=== PATIENT | female | born 1970 | race Caucasian/White ===

== ENCOUNTER 2017-05-23 07:21 | Emergency (ER) | payer MEDICAID, OTHER ==
[~2017-05-23] VITALS: Ht 152.4 cm; Wt 82.0 kg
[~2017-05-23 07:21] MED LIST: DIPH1TAB36 PO; DOXY100T PO; INSU100V2 SQ; LISI-357 PO
[2017-05-23 07:22] VITALS: BP 200/94; PULSE 104; RESP 16; TEMP 98.6; O2SAT 100
[2017-05-23] MEDS ORDERED: INSU100V2 SQ (07:53)
--- NOTE | 2017-05-23 08:13 | PD ---
HPI Chief Complaint: Edema Time Seen by Provider: 08:00 Travel History International Travel<30 days: No Contact w/Intl Traveler<30days: No Traveled to known affect area: No History of Present Illness HPI 47 years old female complains of pain and swelling right low leg and right foot. Patient states that the symptoms started 3 weeks ago and got worse since then. Patient was seen at the emergency room in [place] for this condition. Patient states that the workup was done. Patient denies any headache. Patient denies any chest pain or shortness of breath. Patient denies abdominal pain. Patient denies any injury to the right leg, right foot. Patient had recent airplane trip however after the symptoms started. Patient has history hypertension, diabetes, hyperlipidemia. Patient states that she quit smoking 9 years ago. Patient recently was diagnosed with COPD. Patient has not taken her blood pressure medication recently. Patient denies any history of DVT or PE. PFSH Past Medical History Diabetes: Yes Patient Takes Glucophage: No Diminished Hearing: No Genitourinary: Yes (UTI ) Hypertension: Yes Immunizations Current: No Tetanus Vaccination: Unknown Influenza Vaccination: No ?: Not Menopausal: No Tubal Ligation: Yes Past Surgical History Gynecologic Surgery: Yes (HYSTERECTOMY , TUBAL LIGATION ) Hysterectomy: Yes Social History Alcohol Use: Yes (rarely) Tobacco Use: No (quit ) Substance Use: No Allergies-Medications (Allergen,Severity, Reaction): Coded Allergies: penicillin G (Unverified Allergy, Mild, 05/23/17) Reported Meds & Prescriptions Reported Meds & Active Scripts Active Reported Humulin R Inj (Insulin Human Regular) 1,000 Unit/10 Ml Vial 10-20 Units SQ ACHS Max dose at bedtime:( )units; sugars < 70,(0)units; sugars 150-199,(5)units; sugars 200-249,(10)units; sugars 250-299,(15)units; sugars 300-349,(20)units; sugars more than 349,(25)units. Review of Systems General / Constitutional: No: Fever Eyes: No: Visual changes HENT: No: Headaches Cardiovascular: No: Chest Pain or Discomfort Respiratory: No: Shortness of Breath Gastrointestinal: No: Abdominal Pain Genitourinary: No: Dysuria Musculoskeletal: Positive: Edema, Pain Skin: No Rash Neurologic: No: Weakness Psychiatric: No: Depression Endocrine: No: Polydipsia Hematologic/Lymphatic: No: Easy Bruising Physical Exam Narrative GENERAL: Well-nourished, well-developed patient. SKIN: Focused skin assessment warm/dry. HEAD: Normocephalic. EYES: No scleral icterus. No injection or drainage. NECK: Supple, trachea midline. No JVD or lymphadenopathy. CARDIOVASCULAR: Regular rate and rhythm without murmurs, gallops, or rubs. RESPIRATORY: Breath sounds equal bilaterally. No accessory muscle use. GASTROINTESTINAL: Abdomen soft, non-tender, nondistended. MUSCULOSKELETAL: Patient has swelling of the right low leg with mild tenderness on palpation diffuse over the right lower leg. Patient has mild ecchymosis on the right foot dorsally with +2 pitting edema. No redness no heat. BACK: Nontender without obvious deformity. No CVA tenderness. Neurologic exam normal. Data Data Last Documented VS Vital Signs Date Time Temp Pulse Resp B/P Pulse Ox O2 Delivery O2 Flow Rate FiO2 05/23/17 09:30 Room Air 05/23/17 08:22 91 16 205/93 99 05/23/17 07:22 98.6 Orders Complete Blood Count With Diff (05/23/17 08:06) Comprehensive Metabolic Panel (05/23/17 08:06) Prothrombin Time / Inr (Pt) (05/23/17 08:06) Act Partial Throm Time (Ptt) (05/23/17 08:06) Iv Access Insert/Monitor (05/23/17 08:06) Ecg Monitoring (05/23/17 08:06) Oximetry (05/23/17 08:06) Foot, Complete ([id number]) (05/23/17 08:06) Us Leg Venous Doppler (05/23/17 08:06) Acetaminophen (Tylenol) (05/23/17 10:00) Ct Foot W/O Contrast (05/23/17 ) Splint Or Brace Apply/Monitor (05/23/17 13:20) Crutches (05/23/17 13:20) Labs Laboratory Tests Test 05/23/17 05/23/17 08:15 11:07 White Blood Count 9.8 TH/MM3 Red Blood Count 3.13 MIL/MM3 Hemoglobin 9.6 GM/DL Hematocrit 26.8 % Mean Corpuscular Volume 85.5 FL Mean Corpuscular Hemoglobin 30.8 PG Mean Corpuscular Hemoglobin 36.0 % Concent Red Cell Distribution Width 12.9 % Platelet Count 365 TH/MM3 Mean Platelet Volume 8.8 FL Neutrophils (%) (Auto) 67.4 % Lymphocytes (%) (Auto) 20.0 % Monocytes (%) (Auto) 8.7 % Eosinophils (%) (Auto) 3.2 % Basophils (%) (Auto) 0.7 % Neutrophils # (Auto) 6.6 TH/MM3 Lymphocytes # (Auto) 2.0 TH/MM3 Monocytes # (Auto) 0.9 TH/MM3 Eosinophils # (Auto) 0.3 TH/MM3 Basophils # (Auto) 0.1 TH/MM3 CBC Comment AUTO DIFF Differential Comment AUTO DIFF CONFIRMED Sodium Level 136 MEQ/L Potassium Level 4.3 MEQ/L Chloride Level 106 MEQ/L Carbon Dioxide Level 24.6 MEQ/L Anion Gap 5 MEQ/L Blood Urea Nitrogen 36 MG/DL Creatinine 1.37 MG/DL Estimat Glomerular Filtration 42 ML/MIN Rate Random Glucose 172 MG/DL Calcium Level 8.5 MG/DL Total Bilirubin 0.2 MG/DL Aspartate Amino Transf 11 U/L (AST/SGOT) Alanine Aminotransferase 15 U/L (ALT/SGPT) Alkaline Phosphatase 125 U/L Total Protein 6.9 GM/DL Albumin 2.7 GM/DL Prothrombin Time 9.6 SEC Prothromb Time International 0.9 RATIO Ratio Activated Partial 24.5 SEC Thromboplast Time MDM Medical Decision Making Medical Screen Exam Complete: Yes Emergency Medical Condition: Yes Interpretation(s) Last Impressions Lower Extremity Ultrasound 05/23/17805 Signed Impressions: Service Date/Time: May 08:27 - CONCLUSION: Unremarkable exam with no evidence of deep venous thrombosis. Terry Schultz MD 10:51 AM. CBC WBC 9.8. Hemoglobin 9.6 hematocrit 26.8. BUN 36. Creatinine 1.37. Glucose 172. 12:52 PM. Last Impressions Lower Extremity Ultrasound 05/23/17805 Signed Impressions: Service Date/Time: May 08:27 - CONCLUSION: Unremarkable exam with no evidence of deep venous thrombosis. Terry Schultz MD Foot X-Ray 05/23/17805 Signed Impressions: Service Date/Time: May 09:25 - CONCLUSION: 1. Abnormal examination suggesting possible early Charcot foot versus remote Lisfranc injury. Emery Dodson MD CT scan of the right foot show acute fracture involving the proximal portion of the right second third and fourth metatarsals with dorsal displacement of these bone inhalation to the tarsal bones. Acute fractured bone the middle cuneiform. Differential Diagnosis Differential diagnosis including DVT, dependent edema, cellulitis, fracture, dislocation. Narrative Course 47 years old female with pain and swelling right low leg and right foot. Posterior short-leg splint and crutches given. 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 Will follow-up with the patient. Diagnosis Primary Impression: Fracture of 2nd metatarsal Qualified Code: S92.321A - Closed displaced fracture of second metatarsal bone of right foot, initial encounter Additional Impressions: Fracture of third metatarsal bone of right foot Qualified Code: S92.331A - Closed displaced fracture of third metatarsal bone of right foot, initial encounter Fracture of fourth metatarsal bone of right foot Qualified Code: S92.341A - Closed displaced fracture of fourth metatarsal bone of right foot, initial encounter Fracture of tarsal bone of right foot Qualified Code: S92.244A - Closed nondisplaced fracture of medial cuneiform of right foot, initial encounter Patient Instructions: General Instructions Additional Instructions: Take medication as needed for pain. Follow-up with middle school football coach. Med/Other Pt SpecificInfo: Prescription(s) given Scripts Tramadol (Ultram)50 Mg Tab50 Mg PO Q6H PRN (PAIN) #30 TAB Prov:Nick Sparrow MD 05/23/17 Disposition: 01 DISCHARGE HOME Condition: Stable Nick Sparrow MD May 23, 2017 08:13
[2017-05-23 08:22] VITALS: BP 205/93; PULSE 91; RESP 16; O2SAT 99
[2017-05-23 08:31] LABS: AUTOMATED NEUTROPHIL # 6.6 TH/MM3 (1.8-7.7); BASOPHIL # 0.1 TH/MM3 (0-0.2); BASOPHIL % 0.7 % (0.0-2.0); EOSINOPHIL # 0.3 TH/MM3 (0-0.4); EOSINOPHIL % 3.2 % (0.0-4.0); HEMATOCRIT 26.8 % (35.0-46.0); MEAN CELL VOLUME 85.5 FL (80.0-100.0); MEAN CORPUSCULAR HEMOGLOBIN 30.8 PG (27.0-34.0); MONO % 8.7 % (0.0-8.0); NEUT % 67.4 % (16.0-70.0); PLATELET COUNT 365 TH/MM3 (150-450); RED BLOOD COUNT 3.13 MIL/MM3 (4.00-5.30); RED CELL DISTRIBUTION WIDTH 12.9 % (11.6-17.2); WHITE BLOOD COUNT 9.8 TH/MM3 (4.0-11.0)
[2017-05-23 08:35] LABS: HEMO FLAGS AUTO DIFF
[2017-05-23 08:46] LABS: ANION GAP 5 MEQ/L (5-15); AST (GOT) 11 U/L (15-37); BICARBONATE 24.6 MEQ/L (21.0-32.0); BLOOD UREA NITROGEN 36 MG/DL (7-18); CHLORIDE 106 MEQ/L (98-107); GLOMERULAR FILTRATION RATE 42 ML/MIN (>89); POTASSIUM 4.3 MEQ/L (3.5-5.1); SODIUM (NA) 136 MEQ/L (136-145)
[2017-05-23 08:47] LABS: ALT (GPT) 15 U/L (10-53)
[2017-05-23 08:49] LABS: ALKALINE PHOSPHATASE 125 U/L (45-117); TOTAL BILIRUBIN ADULT 0.2 MG/DL (0.2-1.0)
--- NOTE | 2017-05-23 09:09 | RADRPT ---
EXAM DATE/TIME: 05/23/2017 08:27 [facility] COMPARISON: No previous studies available for comparison. INDICATIONS : Right leg pain. MEDICAL HISTORY : Hypertension. UTI. Peripheral neuropathy. Diabetes. Depression. Anxiety. SURGICAL HISTORY : Hysterectomy. Tubal ligation. ENCOUNTER: Initial ACUITY: 3 days PAIN SCORE: 6/10 LOCATION: Right leg. TECHNIQUE: Venous ultrasound of the leg was performed from the inguinal ligament to the proximal calf. Real-mary alice e, color Doppler and spectral tracing, compression and augmentation techniques were used. FINDINGS: There is normal compressibility of the deep venous system from the inguinal region to the proximal ca lf. No echogenic clot is seen in the lumen of the common femoral, femoral, popliteal, and posterior tibial veins. There is a normal response of the venous system to proximal and distal augmentation an d respiration. CONCLUSION: Unremarkable exam with no evidence of deep venous thrombosis. Terry Schultz MD on May 23, 2017 at 9:07 Board Certified Radiologist. This report was verified electronically.
[2017-05-23 09:30] LABS: SCAN/DIFF AUTO DIFF CONFIRMED
[2017-05-23] MEDS ORDERED: ACETAMINOPHEN 325 MG TAB PO ONE (10:00)
--- NOTE | 2017-05-23 11:21 | RADRPT ---
EXAM DATE/TIME: 05/23/2017 09:25 [facility] COMPARISON: No previous studies available for comparison. INDICATIONS : Right foot pain and swelling. No recent injury. MEDICAL HISTORY : Hypertension. UTI. Peripheral neuropathy. Diabetes. Depression. Anxiety. SURGICAL HISTORY : Hysterectomy. Tubal ligation. ENCOUNTER: Subsequent ACUITY: 2 weeks PAIN SCORE: 5/10 LOCATION: Right foot FINDINGS: The examination demonstrates abnormal alignment involving the second and third metatarsals across the Lisfranc joint. There is posterior subluxation of the third metatarsal head. There are some small enrique ne fragments evident arising from the third metatarsal head. Exam would raise concern for early Charc ot foot or possible remote Lisfranc fracture. CONCLUSION: 1. Abnormal examination suggesting possible early Charcot foot versus remote Lisfranc injury. Emery Dodson MD on May 23, 2017 at 9:54 Board Certified Radiologist. This report was verified electronically.
[2017-05-23 11:30] LABS: APTT (PATIENT) 24.5 SEC (24.3-30.1); INTERNATIONAL NORMALIZED RATIO 0.9 RATIO; PROTHROMBIN TIME - PATIENT 9.6 SEC (9.8-11.6)
--- NOTE | 2017-05-23 12:38 | RADRPT ---
EXAM DATE/TIME: 05/23/2017 11:57 [facility] COMPARISON: No previous studies available for comparison. INDICATIONS : Right foot pain for the past 3 weeks. RADIATION DOSE: 14.57 CTDIvol (mGy) MEDICAL HISTORY : Diabetes mellitus type 2. SURGICAL HISTORY : None. ENCOUNTER: Initial ACUITY: 3 weeks PAIN SCALE: 4/10 LOCATION: Right foot TECHNIQUE: Volumetric scanning of the foot was performed. Using automated exposure control and adjustment of th e mA and/or kV according to patient size, radiation dose was kept as low as reasonably achievable to obtain optimal diagnostic quality images. DICOM format image data is available electronically for re view and comparison. FINDINGS: There are acute fractures involving the proximal portions of the right 2nd, 3rd and 4th metatarsals w ith dorsal displacement of these bones in relation to the tarsal bones. There is also an acute fract ure involving the middle cuneiform. Diffuse soft tissue swelling is noted surrounding the mid foot. CONCLUSION: 1. Acute fractures involving the proximal portions of the right 2nd, 3rd and 4th metatarsals with kylee dariela displacement of these bones in relation to the tarsal bones. 2. Acute fracture involving the middle cuneiform. 3. Diffuse soft tissue swelling involving the right mid foot. Javon Gonzalez MD on May 23, 2017 at 12:11 Board Certified Radiologist. This report was verified electronically.
[2017-05-23] MEDS ORDERED: ULTR50TA5 PO (13:26)
[2017-05-23 14:35] VITALS: BP 139/68
== END 2017-05-23 14:44 | disposition home or self-care (01) ==
LOC: NEPE 07:21
DX: S92.321A Displaced fracture of second metatarsal bone, right foot, initial encounter for closed fracture (principal); S92.331A Displaced fracture of third metatarsal bone, right foot, initial encounter for closed fracture; S92.341A Displaced fracture of fourth metatarsal bone, right foot, initial encounter for closed fracture; S92.244A Nondisplaced fracture of medial cuneiform of right foot, initial encounter for closed fracture; I10 Essential (primary) hypertension; E11.9 Type 2 diabetes mellitus without complications; E78.5 Hyperlipidemia, unspecified; J44.9 Chronic obstructive pulmonary disease, unspecified; X58.XXXA Exposure to other specified factors, initial encounter
CPT/HCPCS: 73630; 73700; 80053; 85025; 85610; 85730; 93971; 99285; E0113

== ENCOUNTER 2018-07-19 16:13 | Observation (INO) ==
[2018-07-19] MEDS ORDERED: Aspirin 325 MG Tablet PO ONE (16:45)
--- NOTE | 2018-07-19 17:08 | ED ---
HPI General Chief Complaint: Chest Pain Stated Complaint: chest pain/dizziness/vomitting Time Seen by Provider: 07/19/18 16:24 Source: patient and family Mode of arrival: wheelchair Limitations: no limitations History of Present Illness HPI narrative: 48-year-old female that presents to the ED for evaluation of chest pain. Per patient she has chest pain and dizziness for the past 2 weeks. Patient is on and off. Chest pain is pressure-like and sharp and comes and goes with nothing seemed to make it better or worse. Per patient the pain gets to be 6 out of 10. Currently feels like pressure on her chest but not sharp. She got concerned today because she started having dizziness which is new from her symptoms. Denies her having a stress test. Denies any history of heart disease on herself. She has a history of high blood pressure, cholesterol, diabetes and depression. She also has a no history of smoking. Family history of heart disease per patient. Has not seen anybody for this. Has not taken anything for this. Allergy to penicillin. No urinary or bowel movement issues. Per patient she does have a history of kidney disease which appears to be stage II or III. She is also reporting that she has not taking her medications every day. She states that overall she feels like she is not good patient. She denies any syncope. No presyncope. Takes no blood thinners. No recent travel. No recent surgeries. Related Data Home Medications Medication Instructions Recorded Confirmed atorvastatin [Lipitor] 20 mg PO DAILY 07/19/18 07/19/18 escitalopram oxalate [Lexapro] 20 mg PO DAILY 07/19/18 07/19/18 hydrochlorothiazide 12.5 mg PO DAILY 07/19/18 07/19/18 insulin regular human [Novolin R 25 sliding scale dose SUBCUT UD 07/19/18 Regular U-100 Insuln] lisinopril 20 mg PO DAILY 07/19/18 07/19/18 Allergies Allergy/AdvReac Type Severity Reaction Status Date / Time penicillin G Allergy Mild Anaphylaxis Verified 07/19/18 16:22 Review of Systems ROS: all other systems reviewed are negative [facility] Medical History Medical History Depressed (Acute) Diabetes (Acute) HTN (hypertension) (Acute) Renal failure (Acute) Social History Social History Substance History: No History of Abuse Second Hand Smoke Exposure: No Smoking Status: Never smoker How Often Do You Have a Drink Containing Alcohol: Never Recent Travel in [facility] within the Last 8 Weeks: No Recent Out of Country Travel within the Last 8 Weeks: No Immunization History Tetanus Immunization: <5 Years Exam Narrative Exam Narrative: GENERAL: Well appearing SKIN: Focused skin assessment warm/dry. HEAD: Atraumatic. Normocephalic. EYES: Pupils equal and round. No scleral icterus. No injection or drainage. ENT: No nasal bleeding or discharge. Mucous membranes pink and moist. Tongue is midline. No uvula deviation. NECK: Trachea midline. No JVD. CARDIOVASCULAR: Regular rate and rhythm. No murmur appreciated. RESPIRATORY: No accessory muscle use. Clear to auscultation. Breath sounds equal bilaterally. GASTROINTESTINAL: Abdomen soft, non-tender, nondistended. Hepatic and splenic margins not palpable. MUSCULOSKELETAL: No obvious deformities. No clubbing. No cyanosis. No edema. Full range of motion of the upper and lower extremities bilaterally. 2+ pulses bilaterally. NEUROLOGICAL: Awake and alert. No obvious cranial nerve deficits. Motor grossly within normal limits. Normal speech. PSYCHIATRIC: Appropriate mood and affect; insight and judgment normal. Course Initial Documented Vital Signs Temperature 98.2 F 07/19/18 16:19 Pulse Rate 102 H 07/19/18 16:19 Respiratory Rate 20 07/19/18 16:19 Blood Pressure 231/99 H 07/19/18 16:19 Pulse Oximetry 99 07/19/18 16:19 Last Documented Vital Signs Temperature 98.2 F 07/19/18 16:19 Pulse Rate 96 H 07/19/18 17:11 Respiratory Rate 20 07/19/18 17:11 Blood Pressure 153/80 H 07/19/18 17:11 Pulse Oximetry 100 07/19/18 17:11 Medical Decision Making BO Attestation BO supervised visit: Yes Attestation: I, Dr. Alvarado, have reviewed the advance practice practitioner's documentation and am in agreement, met with the patient face to face, made the diagnosis, and the medical decision making was done by me. *My assessment and Findings: Patient seen and evaluated with PA, please see PA notes for further details. She is coming in with chest discomfort, fairly elevated blood pressure, is not compliant with her blood pressure medications. EKG did not show any signs of acute changes. Lab work was fairly unremarkable. Patient had been given nitroglycerin with improvement in blood pressure. At this point, patient needs further evaluation for chest pain and plan would be to admit her for further cardiac evaluation. MDM Narrative Medical decision making narrative: 48-year-old female that presents to the ED for evaluation of chest pain. Patient was properly examined and was found to have signs and symptoms concerning for ACS. Labs and imaging ordered. Patient was found to be hypertensive. Given nitroglycerin and aspirin. Labs and imaging showed kidney disease otherwise unremarcable. My attending spoke with patient who agrees to admission to chest pain center. Patient agrees. patient admitted to chest pain center by me. Medical Screen Exam Complete: Yes Emergency Medical Condition: Yes Differential Diagnosis Differential Diagnosis: Chest pain versus typical chest pain versus ACS versus pneumonia versus kidney disease Medical Records Medical records reviewed: Yes I reviewed the patient's medical records. Lab Data Lab results reviewed: Yes I reviewed the patient's lab results. Lab results narrative: trop negative Result diagrams: 07/19/18 17:05 07/19/18 17:05 Lab Results 07/19/18 07/19/18 07/19/18 Range/Units 17:05 17:05 17:05 WBC 9.6 (4.0-11.0) th/mm3 RBC 3.30 L (4.00-5.30) mil/mm3 Hgb 9.6 L (11.6-15.3) gm/dL Hct 27.8 L (35.0-46.0) % MCV 84.4 (80.0-100.0) fL MCH 29.1 (27.0-34.0) pg MCHC 34.5 (32.0-36.0) % RDW 14.1 (11.6-17.2) % Plt Count 296 (150-450) th/mm3 MPV 8.4 (7.0-11.0) fL Neut % (Auto) 71.7 H (16.0-70.0) % Lymph % (Auto) 18.5 (9.0-44.0) % Owsley % (Auto) 6.0 (0.0-8.0) % Eos % (Auto) 3.2 (0.0-4.0) % Baso % (Auto) 0.6 (0.0-2.0) % Neut # (Auto) 6.9 (1.8-7.7) th/mm3 Lymph # (Auto) 1.8 (1.0-4.8) th/mm3 Owsley # (Auto) 0.6 (0.0-0.9) th/mm3 Eos # (Auto) 0.3 (0.0-0.4) th/mm3 Baso # (Auto) 0.1 (0.0-0.2) th/mm3 WBC Differential . Differential Comment Auto diff final Sodium 140 (136-145) meq/L Potassium 4.1 (3.5-5.1) meq/L Chloride 107 (98-107) meq/L Carbon Dioxide 25.2 (21.0-32.0) meq/L Anion Gap 8 (5-15) meq/L BUN 39 H (7-18) mg/dL Creatinine 2.02 H (0.50-1.00) mg/dL Estimated GFR 26 L (>89) mL/min Random Glucose 156 H (74-106) mg/dL Calcium 9.1 (8.5-10.1) mg/dL Total Bilirubin 0.2 (0.2-1.0) mg/dL AST 14 L (15-37) U/L ALT 20 (10-53) U/L Alkaline Phosphatase 114 (45-117) U/L Total Creatine Kinase 149 (26-192) U/L CK-MB (CK-2) 2.0 (0.5-3.6) ng/mL Troponin I Less than 0.02 L (0.02-0.05) ng/mL B-Natriuretic Peptide 61 (0-100) pg/mL Total Protein 7.1 (6.4-8.2) g/dL Albumin 3.0 L (3.4-5.0) g/dL Lipase 154 (73-393) U/L Imaging Data Attestation: I personally reviewed and interpreted this imaging study as follows : Radiologist's impression: Chest X-Ray 07/19/18 16:45 CONCLUSION: Mildly prominent cardiac silhouette. No other acute cardiopulmonary disease identified. ECG Data Attestation: I personally reviewed and interpreted this ECG as follows: Interpretation: EKG shows sinus rhythm with no sign of acute ischemia or arrhythmia. Read by me and attending. Discharge Plan Discharge Disposition Patient Disposition: 30 Still Patient Discharge Details Diagnosis: Chest pain Physicians Team ED Provider: Eduin Alvarado ED Midlevel Provider: Kulwant Pickett Primary Care Provider: Primary Care Virgie Moon Attending Provider: Romulo Manning ED Status: Admitted Observation Patient
[2018-07-19 17:21] LABS: Baso # (Auto) 0.1 th/mm3 (0.0-0.2); Baso % (Auto) 0.6 % (0.0-2.0); Eos # (Auto) 0.3 th/mm3 (0.0-0.4); Eos % (Auto) 3.2 % (0.0-4.0); Hematocrit 27.8 % (35.0-46.0); Hemoglobin 9.6 gm/dL (11.6-15.3); Lymph # (Auto) 1.8 th/mm3 (1.0-4.8); Lymph % (Auto) 18.5 % (9.0-44.0); Mean Corpuscular HGB Conc 34.5 % (32.0-36.0); Mean Corpuscular Hemoglobin 29.1 pg (27.0-34.0); Mean Corpuscular Volume 84.4 fL (80.0-100.0); Mean Platelet Volume 8.4 fL (7.0-11.0); Mono # (Auto) 0.6 th/mm3 (0.0-0.9); Neut # (Auto) 6.9 th/mm3 (1.8-7.7); Neut % (Auto) 71.7 % (16.0-70.0); Platelet Count 296 th/mm3 (150-450); Red Cell Distribution Width 14.1 % (11.6-17.2); White Blood Count 9.6 th/mm3 (4.0-11.0)
--- NOTE | 2018-07-19 17:24 | XR ---
EXAM DATE: 07/19/2018 4:45 PM EDT AGE/SEX: 48 years / Female INDICATIONS: Left side chest pain. CLINICAL DATA: This is the patient's initial encounter. Patient reports that signs and symptoms have been present for 3 days and indicates a pain score of 6/10. MEDICAL/SURGICAL HISTORY: . DiabetesHypertensionRenal failure None. COMPARISON: No prior exams available for comparison. FINDINGS: Single AP view of the chest. The lungs are clear. Cardiac silhouette is mildly prominent.. No evidence of pleural effusion or pneumothorax. CONCLUSION: Mildly prominent cardiac silhouette. No other acute cardiopulmonary disease identified. Electronically signed by: Devon Laurent MD 07/19/2018 5:22 PM EDT
[2018-07-19 17:40] LABS: Anion Gap 8 meq/L (5-15); Aspartate Aminotransferase 14 U/L (15-37); Blood Urea Nitrogen 39 mg/dL (7-18); Calcium 9.1 mg/dL (8.5-10.1); Carbon Dioxide 25.2 meq/L (21.0-32.0); Chloride 107 meq/L (98-107); Glomerular Filtration Rate 26 mL/min (>89); Glucose,Random 156 mg/dL (74-106); Lipase 154 U/L (73-393); Potassium 4.1 meq/L (3.5-5.1); Sodium 140 meq/L (136-145)
[2018-07-19 17:41] LABS: Alanine Aminotransferase 20 U/L (10-53)
[2018-07-19 17:45] LABS: Alkaline Phosphatase 114 U/L (45-117); Creatine Kinase 149 U/L (26-192); Total Protein 7.1 g/dL (6.4-8.2)
[2018-07-19] MEDS ORDERED: Acetaminophen 500 MG Tablet PO PRN (18:25)
[2018-07-19 21:28] LABS: Creatine Kinase 147 U/L (26-192)
[2018-07-19 23:46] LABS: Creatine Kinase 120 U/L (26-192)
[2018-07-20] MEDS ORDERED: Lisinopril 10 MG Tablet PO ONE (02:45)
[2018-07-20] MEDS ORDERED: Dextrose 5% in Water Inj 1,000 ML IV.SIG SCH (03:15)
[2018-07-20] MEDS ORDERED: Aspirin 325 MG Tablet PO SCH (09:00)
[2018-07-20] MEDS ORDERED: Lisinopril 10 MG Tablet PO SCH (09:00)
[2018-07-20] MEDS ORDERED: Lisinopril 20 MG Tablet PO SCH (10:00)
--- NOTE | 2018-07-20 10:08 | P.HPCA ---
History of Present Illness Primary Care Physician: No Primary Care Physician Chief Complaint: Chest pain History of Present Illness: This is a 48-year-old female with history of diabetes, chronic kidney disease, hypertension, hyperlipidemia, chronic foot pain secondary to fracture right foot last year, anemia, and peripheral neuropathy that presents to ED with complaint of 2 weeks of intermittent left-sided chest discomfort. She describes it as a dull ache. Lasts anywhere from 2 minutes to 20 minutes. Nothing in particular seems to bring it on. She times short of breath with it. She also had some nausea and diaphoresis intermittently with it as well. Currently denies chest discomfort. Patient was found to be quite hypertensive upon arrival to the ED. She readily admits to noncompliance. Patient states " I am not a good patient." States she has not taken her blood pressure medicines for at least 3 days. States medications are at home. When asked why , patient states "sometimes I just forget." She was placed on lisinopril over a year ago but states she is really taken it for about 4 months. Currently denies chest discomfort. Diabetes, chronic kidney disease, anemia which she states is related to her kidneys, peripheral neuropathy, hypertension, hyperlipidemia, chronic right foot pain secondary to fracture last year. She follows podiatry in the summer and for that. She has had a partial hysterectomy. Denies family history of CAD. Patient quit smoking 10 years ago but prior that she smoked about 1 pack a series daily for 20 years. Rarely has alcohol. Denies illicit drug use. - Diagnosis (1) Chest pain (2) Diabetes (3) Chronic kidney disease (4) Hypertension (5) Hyperlipidemia (6) Chronic foot pain (7) Peripheral neuropathy (8) Anemia Review of Systems General: Patient denies fevers, chills, and recent travel. HEENT: Patient denies headache, sore throat, difficulty swallowing. Cardiovascular: Has the chest discomfort as mentioned above. Denies sensation of heart beating rapidly or irregularly. No syncope. At times diaphoretic. Respiratory: Intermittent shortness of breath. Denies inspirational chest discomfort. Denies coughing wheezing or hemoptysis. GI: Intermittent nausea. Patient denies vomiting, diarrhea, abdominal pain, bloody stools. Musculoskeletal: Patient denies joint pain or edema. Denies calf pain or edema. Neurovascular: Patient denies numbness, tingling, weakness in extremities. Denies headache. Endocrine: Denies polyuria and polydipsia. Hematologic: Denies easy bruising. Skin: Denies rash or itching. PMFSH - History History Provided By: Patient - Medical History Medical History: Medical History (Last Reviewed 07/19/18 @ 17:06 by RAYRAY Felix) Depressed Diabetes HTN (hypertension) Renal failure - Tobacco History Second Hand Smoke Exposure: No Tobacco Use In Past 30 Days: No Smoking Status: Never smoker - Alcohol History How Often Do You Have a Drink Containing Alcohol: Never - Substance Use History Substance History: No History of Abuse - Travel History Recent Travel in the [facility] Within the Last 8 Weeks: No Recent Travel Out of the Country Within the Last 8 Weeks: No - Immunization History Tetanus Immunization: <5 Years Medications and Allergies Active Medications: Active Medications Acetaminophen (Tylenol) 500 mg PO Q4H PRN PRN Reason: HEADACHE Last Admin: 07/20/18 07:51 Dose: 500 mg Hydrocodone Bitart/Acetaminophen ([place] 7.5/325) 1 tab PO Q4H PRN PRN Reason: PAIN SCALE 1 TO 7 Last Admin: 07/19/18 22:51 Dose: 1 tab Aspirin (Aspirin) 325 mg PO DAILY [facility] Last Admin: 07/20/18 09:59 Dose: 325 mg Atorvastatin Calcium (Lipitor) 20 mg PO DAILY [facility] Last Admin: 07/20/18 09:59 Dose: 20 mg Clonidine HCl (Catapres) 0.1 mg PO Q6H PRN PRN Reason: SYSTOLIC>170,DIASTOLIC>95 Last Admin: 07/20/18 08:22 Dose: 0.1 mg Escitalopram Oxalate (Lexapro) 20 mg PO DAILY [facility] Hydrochlorothiazide (Microzide) 12.5 mg PO DAILY [facility] Last Admin: 07/20/18 09:59 Dose: 12.5 mg Dextrose (D5w Inj) 1,000 mls @ 50 mls/hr IV.SIG .Q20H [facility] Last Admin: 07/20/18 03:10 Dose: 50 mls/hr Insulin Human Regular (Novolin R Correctional Sugar Inj) 0 units SQ ACHS [facility]; Protocol Lisinopril (Prinivil) 20 mg PO DAILY [facility] Last Admin: 07/20/18 10:00 Dose: Not Given Ondansetron HCl (Zofran Inj) 4 mg IV.PUSH Q6H PRN PRN Reason: NAUSEA Last Admin: 07/20/18 09:59 Dose: 4 mg Sodium Chloride (Ns Flush) 2 ml IV.FLUSH BID [facility] Last Admin: 07/20/18 08:24 Dose: Not Given Sodium Chloride (Ns Flush) 2 ml IV.FLUSH PRN PRN PRN Reason: FLUSH AFTER USING IV ACCESS Allergies Allergy/AdvReac Type Severity Reaction Status Date / Time penicillin G Allergy Mild Anaphylaxis Verified 07/19/18 16:22 Home Medications Medication Instructions Recorded Confirmed Type atorvastatin [Lipitor] 20 mg PO DAILY 07/19/18 07/19/18 History escitalopram oxalate [Lexapro] 20 mg PO DAILY 07/19/18 07/19/18 History hydrochlorothiazide 12.5 mg PO DAILY 07/19/18 07/19/18 History insulin regular human [Novolin R 25 sliding scale dose SUBCUT UD 07/19/18 History Regular U-100 Insuln] lisinopril 20 mg PO DAILY 07/19/18 07/19/18 History Exam Vital signs: Vital Signs 07/19/18 16:19 07/19/18 17:11 07/19/18 20:00 Temperature 98.2 F 98.1 F Pulse Rate 102 H 96 H 91 H Respiratory Rate 20 20 18 Blood Pressure 231/99 H 153/80 H 179/88 H Pulse Oximetry 99 100 98 07/19/18 20:56 07/19/18 23:25 07/20/18 00:00 Temperature 98.2 F Pulse Rate 94 H Respiratory Rate 22 18 Blood Pressure 205/91 H Pulse Oximetry 98 95 07/20/18 02:19 07/20/18 03:54 07/20/18 06:05 Temperature 98 F 97.7 F Pulse Rate 91 H 89 Respiratory Rate 18 18 Blood Pressure 206/93 H 184/86 H 165/87 H Pulse Oximetry 98 96 07/20/18 08:00 Temperature 97.9 F Pulse Rate 91 H Respiratory Rate 20 Blood Pressure 202/95 H Pulse Oximetry 96 Intake & Output 07/19/18 07/20/18 07/20/18 18:59 06:59 18:59 Intake Total 400 / 400 Balance 400 / 400 Weight 88.451 kg 88.41 kg Intake: Oral 400 / 400 Other: # Voids 2 Date of Last Bowel Movement 07/19/18 Weight On Admission 88.45 kg Narrative: GENERAL: This is a well-nourished, well-developed patient, in no apparent distress. Patient speaks in clear complete sentences. Patient is pleasant. HEENT: Head is atraumatic and normocephalic. Neck is supple without lymphadenopathy and trachea is midline. No JVD or carotid bruits. CARDIOVASCULAR: Regular rate and rhythm without murmurs, gallops, or rubs. RESPIRATORY: Clear to auscultation. Breath sounds equal bilaterally. No wheezes , rales, or rhonchi. Chest wall is nontender. No use of accessory muscles. GASTROINTESTINAL: Abdomen is nontender, nondistended. Abdomen soft. No obvious pulsatile mass or bruit. No CVA tenderness. Strong femoral pulses bilaterally. Normal bowel sounds in all quadrants. MUSCULOSKELETAL: Patient is moving upper and lower extremities freely. No calf tenderness or edema, no Homans sign. Strong pulses in upper and lower extremities. NEUROLOGICAL: Patient is alert and oriented. Cranial nerves 2-12 are grossly intact. No focal deficits and speech is clear. SKIN: No rash and turgor is normal. Results 07/19/18 17:05 07/19/18 17:05 Cardiac Enzymes 07/19/18 07/19/18 07/19/18 Range/Units 17:05 17:05 20:35 AST 14 L (15-37) U/L CK-MB (CK-2) 2.0 (0.5-3.6) ng/mL Troponin I Less than 0.02 L Less than 0.02 L (0.02-0.05) ng/mL B-Natriuretic Peptide 61 (0-100) pg/mL 07/19/18 Range/Units 23:15 AST (15-37) U/L CK-MB (CK-2) (0.5-3.6) ng/mL Troponin I Less than 0.02 L (0.02-0.05) ng/mL B-Natriuretic Peptide (0-100) pg/mL Coagulation 07/19/18 Range/Units 17:05 B-Natriuretic Peptide 61 (0-100) pg/mL CBC 07/19/18 Range/Units 17:05 WBC 9.6 (4.0-11.0) th/mm3 RBC 3.30 L (4.00-5.30) mil/mm3 Hgb 9.6 L (11.6-15.3) gm/dL Hct 27.8 L (35.0-46.0) % Plt Count 296 (150-450) th/mm3 Neut # (Auto) 6.9 (1.8-7.7) th/mm3 Lymph # (Auto) 1.8 (1.0-4.8) th/mm3 Pine # (Auto) 0.6 (0.0-0.9) th/mm3 Eos # (Auto) 0.3 (0.0-0.4) th/mm3 Baso # (Auto) 0.1 (0.0-0.2) th/mm3 Comprehensive Metabolic Panel 07/19/18 Range/Units 17:05 Sodium 140 (136-145) meq/L Potassium 4.1 (3.5-5.1) meq/L Chloride 107 (98-107) meq/L Carbon Dioxide 25.2 (21.0-32.0) meq/L BUN 39 H (7-18) mg/dL Creatinine 2.02 H (0.50-1.00) mg/dL Calcium 9.1 (8.5-10.1) mg/dL AST 14 L (15-37) U/L ALT 20 (10-53) U/L Alkaline Phosphatase 114 (45-117) U/L Total Protein 7.1 (6.4-8.2) g/dL Albumin 3.0 L (3.4-5.0) g/dL Intake and Output 07/19/18 07/20/18 07/20/18 22:59 06:59 14:59 Intake Total 400 / 400 Balance 400 / 400 Intake: Oral 400 / 400 Other: # Voids 2 Date of Last Bowel Movement 07/19/18 Weight 88.41 kg Weight On Admission 88.45 kg - Imaging and Cardiology Imaging: Impressions Chest X-Ray 07/19/18 16:45 CONCLUSION: Mildly prominent cardiac silhouette. No other acute cardiopulmonary disease identified. EKG interpretations - EKG EKG shows: sinus rhythm (EKGs are sinus rhythm without significant ST segment depressions or elevations.) Caprini VTE Risk Assessment Caprini VTE Risk Assessment: No/Low Risk (score <= 1) Caprini Risk Assessment Model: Point Value = 1 Point Value = 2 Point Value = 3 Point Value = 5 Age 41-60 Minor surgery BMI > 25 kg/m2 Swollen legs Varicose veins or History of unexplained or recurrent spontaneous Oral contraceptives or hormone replacement Sepsis (< 1 month) Serious lung disease, including pneumonia (< 1 month) Abnormal pulmonary function Acute myocardial infarction Congestive heart failure (< 1 month) History of inflammatory bowel disease Medical patient at bed rest Age 61-74 Arthroscopic surgery Major open surgery (> 45 min) Laparoscopic surgery (> 45 min) Malignancy Confined to bed (> 72 hours) Immobilizing plaster cast Central venous access Age >= 75 History of VTE Family history of VTE Factor V Leiden Prothrombin [id number] Lupus anticoagulant Anticardiolipin antibodies Elevated serum homocysteine Heparin-induced thrombocytopenia Other congenital or acquired thrombophilia Stroke (< 1 month) Elective arthroplasty Hip, pelvis, or leg fracture Acute spinal cord injury (< 1 month) Prophylaxis Regimen: Total Risk Factor Score Risk Level Prophylaxis Regimen 0-1 Low Early ambulation 2 Moderate Order ONE of the following: *Sequential Compression Device (SCD) *Heparin 5000 units SQ BID 3-4 Higher Order ONE of the following medications: *Heparin 5000 units SQ TID *Enoxaparin/Lovenox 40 mg SQ daily (WT < 150 kg, CrCl > 30 mL/min) *Enoxaparin/Lovenox 30 mg SQ daily (WT < 150 kg, CrCl > 10-29 mL/min) *Enoxaparin/Lovenox 30 mg SQ BID (WT < 150 kg, CrCl > 30 mL/min) AND/OR *Sequential Compression Device (SCD) 5 or more Highest Order ONE of the following medications: *Heparin 5000 units SQ TID (Preferred with Epidurals) *Enoxaparin/Lovenox 40 mg SQ daily (WT < 150 kg, CrCl > 30 mL/min) *Enoxaparin/Lovenox 30 mg SQ daily (WT < 150 kg, CrCl > 10-29 mL/min) *Enoxaparin/Lovenox 30 mg SQ BID (WT < 150 kg, CrCl > 30 mL/min) AND *Sequential Compression Device (SCD) Assessment and Plan - Assessment (1) Chest pain Code(s): R07.9 - Chest pain, unspecified Status: Acute (2) Diabetes Code(s): E11.9 - Type 2 diabetes mellitus without complications Status: Acute (3) Chronic kidney disease Code(s): N18.9 - Chronic kidney disease, unspecified Status: Acute (4) Hypertension Code(s): I10 - Essential (primary) hypertension Status: Acute (5) Hyperlipidemia Code(s): E78.5 - Hyperlipidemia, unspecified Status: Acute (6) Chronic foot pain Code(s): M79.673 - Pain in unspecified foot; G89.29 - Other chronic pain Status: Acute (7) Peripheral neuropathy Code(s): G62.9 - Polyneuropathy, unspecified Status: Acute (8) Anemia Code(s): D64.9 - Anemia, unspecified Status: Acute - Plan * Chest pain: Patient has had serial cardiac enzymes and EKGs for ruling out purposes. She will be seen by Dr. Manning of cardiology in the chest pain center. She will undergo a Lexiscan as she states she cannot really go on a treadmill with her right foot issues. Patient will be discharged home if her stress test is nonischemic with instructions to follow-up with PCP. Also discussed at great length the importance of being compliant with her medications and treatment plans that are recommended by her physicians. * Chronic kidney disease: Patient need to follow-up with nephrology. States she has not seen a photographic engineer. Needs to discuss her medications. * Anemia: Continue follow-up with PCP and also will need follow-up with photographic engineer. * Diabetes: Sliding scale insulin coverage while in chest pain center. Resume medication at discharge. Follow diabetic diet which she also readily admits to not doing at this time. * Hypertension: Continue medication. * Hyperlipidemia: Continue medication. * Chronic foot pain: Follow-up with her wood type cutter. * Peripheral neuropathy: Follow-up with PCP. Patient is stable at this time. She is agreeable to this plan. H&P: Quality - VTE Deep Vein Thrombosis/Pulmonary Embolism Present on Admission: No (1) Chest pain Qualifiers: Chest pain type: unspecified Qualified Code(s): R07.9 - Chest pain, unspecified
[2018-07-20] MEDS ORDERED: Regadenoson Inj 0.4 MG/5 ML Syringe IV.PUSH ONE (11:31)
[2018-07-20] MEDS ORDERED: Insulin NovoLIN Regular Correctional Sugar Inj SQ SCH (12:00)
[2018-07-20 13:08] VITALS: PULSE 87
--- NOTE | 2018-07-20 13:31 | NM ---
EXAM DATE: 07/20/2018 10:57 AM EDT AGE/SEX: 48 years / Female INDICATIONS:Angina. . Intermittent left sided chest pain. CLINICAL DATA: This is the patient's initial encounter. Patient reports that signs and symptoms have been present for 2 weeks and indicates a pain score of 3/10. MEDICAL/SURGICAL HISTORY: Diabetes. Hypertension. Renal failure. Tubal ligation. Hysterectom y. COMPARISON: No prior exams available for comparison. DOSE: 8.8 mCi Tc 99m Myoview at rest 26.2 mCi [id number] at stress 0.4 mg Lexiscan STRESS SYMPTOMS: Dyspnea, nausea, and headache. EJECTION FRACTION: 46 % TECHNIQUE: The patient underwent pharmacologic stress with infusion of prescribed dose. Continuous ECG tracing was monitored during stress. Gated SPECT imaging was performed after stress and conventi onal SPECT imaging was performed at rest. The examination was performed on a SPECT/CT scanner, both attenuation and non-corrected datasets were reviewed. FINDINGS: Distribution: The maximum perfused segment at stress is in the lateral wall. Perfusion Study: The pattern of perfusion at stress is within normal limits. Gated Study: There are intact wall motion and wall thickening without hypokinetic or dyskinetic segm ents. The ejection fraction is calculated at 46%. RISK CATEGORY: Low (<1% Annual Motality Rate) CONCLUSION: 1. Negative examination. Electronically signed by: Tammy Escalona MD 07/20/2018 1:30 PM EDT
[2018-07-20 13:55] VITALS: BP 182/80; RESP 12; TEMP 97.5; O2SAT 95
--- NOTE | 2018-07-20 15:02 | TR ---
Date Performed: 07/20/2018 Time Performed: 11:46:01 DOCTOR: Romulo Manning DRUG LIST: CLINICAL HISTORY: REASON FOR TEST: Angina REASON FOR ENDING: OBSERVATION: CONCLUSION: COMMENTS: Lexiscan stress test was performed under standard four minute protocol. Radionuclide was injected one minute prior to ending the test. No electrocardiographic abormalities were present t o suggest ischemia. Nuclear imaging and interpretation are pending.
--- NOTE | 2018-07-20 15:06 | ECG ---
Date Performed: 07/19/2018 Time Performed: 23:03:30 PTAGE: 48 years EKG: Sinus rhythm Poor R wave progression ABNORMAL ECG PREVIOUS TRACING : 07/19/2018 20.15 Since previous tracing, no significant change noted DOCTOR: Romulo Manning Interpretating Date/Time 07/20/2018 15:04:13
--- NOTE | 2018-07-20 15:06 | ECG ---
Date Performed: 07/19/2018 Time Performed: 20:15:44 PTAGE: 48 years EKG: Sinus rhythm Poor R wave progression ABNORMAL ECG PREVIOUS TRACING : 07/19/2018 16.48 DOCTOR: Romulo Manning Interpretating Date/Time 07/20/2018 15:05:41
--- NOTE | 2018-07-20 15:11 | ECG ---
Date Performed: 07/19/2018 Time Performed: 16:48:30 PTAGE: 48 years EKG: Sinus rhythm Poor R wave progression PREVIOUS TRACING : 05/03/2014 20.34 Since previous tracing, no significant change noted DOCTOR: Romulo Manning Interpretating Date/Time 07/20/2018 15:09:53
== END 2018-07-20 15:21 | disposition home or self-care (01) ==
LOC: NEPE 16:13 → NEDA 16:13 → NEPFCDU 19:10